=== PATIENT | female | born 1945 | race Caucasian/White ===

== ENCOUNTER 2024-03-13 10:30 | Outpatient (AMB) | payer OTHER, SELFPAY ==
[2022-12-31 13:27] VITALS: BP 96/48; BP 96/58; BP 98/48; BMI 27.9
--- NOTE | 2024-03-13 10:54 | MHC.OFFVIS ---
Vital Signs 03/13/24 10:56 Height 5 ft 4 in Weight 170 lb BMI 29.2 BP 126/60 Blood Pressure Location Rt brachial Position Sitting Respiration 17 Pulse 75 Pulse Source Pulse Oximeter Pulse Oximetry (%) 98 Oxygen Delivery Method Room Air Intake Visit Reasons: ENP-Bradykinesia Intake Note: Pt presents for new pt consultation for bradykinesia. Automobile Brakes Bonder Required: No Allergies Penicillins Allergy (Mild, Verified 03/13/24 10:56) Rash Medication List - Last Reconciled 03/13/24 by Magy Paula MD aspirin 81 mg PO DAILY atorvastatin 40 mg PO DAILY bisacodyl 10 mg SC DAILY PRN cholecalciferol (vitamin D3) 25 mcg PO DAILY ibuprofen 200 mg PO Q6H PRN ipratropium bromide 2 sprays intranasal TID lisinopril 5 mg PO DAILY loratadine (Claritin) 10 mg PO DAILY psyllium husk (Metamucil) 1 tbsp PO DAILY HPI Comments Details: 78y/o Right handed female comes for evaluation of slowness. She noticed some tremors and slowness in her right hand for past 18 mths and feels its worsening. she had aortic valve replacement - 18 mths ago , she was fatigued and slow before that - it was assumed to be due to Aortic stenosis. Her slowness did not improve after her heart valve replacement.Her speech is soft and has some difficulty with word finding. she has nighttime drooling , occasional swallowing issues.her hand writing is smaller and slower. she has difficulty with cutting meat,dressing, having a shower and turning in bed. Her gait is slow - she thinks it might be related to sciatica. she shuffles , has some balance issues and is stooped. she has constipation for many years.she denies hallucination.she denies diplopia but reports occasion dizziness and vertigo. No head injury. Memory is worse.she reports vivid dreams and acting out in sleep for atleast 10 years. Mood is stable. [facility] Medical History (Updated 03/13/24 @ 11:53 by Magy Paula MD) Gait disorder Cervicalgia Parkinson's disease without dyskinesia Osteopenia Essential hypertension Breast CA Vitamin D deficiency Aortic valve stenosis Surgical History H/O aortic valve replacement H/O heart surgery History of appendectomy Social History Household Members: Spouse Housing: Assisted Living Facility Alcohol intake: current Comment: 1-2 glass wine Patient Tobacco Use Status: Never used Tobacco Physical Exam Vital Signs: Last Vital Signs Pulse 75 03/13/24 10:56 Resp 17 03/13/24 10:56 BP 126/60 03/13/24 10:56 Pulse Ox 98 03/13/24 10:56 Oxygen Delivery Method Room Air 03/13/24 10:56 BMI result Body Mass Index 29.2 Const General: cooperative, comfortable and no acute distress Nutritional Appearance: average body habitus Orientation/consciousness: oriented to person, oriented to place, oriented to time and patient oriented x3 Eyes Pupils: Equal, round and reactive pupils present Neck Neck: Yes no meningeal signs Neuro Other: Moderate decreased blink facial expression Right hand tremors - 4-6 hz in frequency intermittent Moderate bradykinesia FFM and foot taps decreased R>L Cog wheel rigidity - 2 + no UE Gait stooped , slow, narrow based , short steps , decreased arm swings R>L Moderate hypophonia General: oriented to person, oriented to place, oriented to time, patient oriented x3 and no meningeal signs Cranial nerves: Yes Facial sensation intact/muscles of mastication intact, Yes Equal, round and reactive pupils present, Yes Bilaterally intact EOM present, Yes Nystagmus not present, Yes Normal facial strength present, Yes Midline tongue present and Yes Symmetric palate elevation present Cognition (Neuro): normal cognition Motor exam (neuro): 5/5 motor strength present throughout Deep tendon reflexes (DTR's): Right triceps reflex intensity grade: 3+, Left triceps reflex intensity grade: 3+, Rt Biceps (C5, C6): 3+, Left biceps reflex intensity grade: 3+, Right brachioradialis reflex intensity grade: 3+, Left brachioradialis reflex intensity grade: 3+, Right patellar reflex intensity grade: 3+ and Left patellar reflex intensity grade: 3+ Coordination: [id number] test normal Assessment & Plan Assessment & Plan (1) Parkinson's disease without dyskinesia: Code(s): G20.A1 - Parkinson's disease without dyskinesia, without mention of fluctuations Category: Medical (2) Cervicalgia: Code(s): M54.2 - Cervicalgia Category: Medical Plan Discussed about diagnosis and management options in detail I will evaluate her with MRI brain MRI C spine to r/o spinal stenosis Trial patient on carbidopa/levodopa 25/100 1/2 tab tid - side effects explained PT Orders: Orders MR head/brain wo con 03/13/24 G20.A1 - Parkinson's disease without dyskinesia, without mention of fluctuations PT Evaluation and Treatment 03/13/24 G20.A1 - Parkinson's disease without dyskinesia, without mention of fluctuations MR cervical spine wo con 03/13/24 G20.A1 - Parkinson's disease without dyskinesia, without mention of fluctuations, M54.2 - Cervicalgia, R26.9 - Unspecified abnormalities of gait and mobility Referrals Speech and Hearing Referral G20.A1 - Parkinson's disease without dyskinesia, without mention of fluctuations Medications: New carbidopa-levodopa 25-100 mg 1/2 tab tid orally 3 times a day; 90 tabs 3RF Coding Level of Care Code New Pt Level 4 (33270) Complex EM visit Add On G2211 Diagnoses Parkinson's disease without dyskinesia G20.A1 Cervicalgia M54.2
[2024-03-13 10:56] VITALS: BP 126/60; PULSE 75; RESP 17; O2SAT 98; BMI 29.2
== END 2024-03-13 12:01 | disposition home or self-care (01) ==
PROVIDERS: PCP Family Medicine; Visit Provider Psychiatry & Neurology Neurology
DX: G20.A1 Parkinson's disease without dyskinesia, without mention of fluctuations (principal); M54.2 Cervicalgia
CPT/HCPCS: 99204; G2211

== ENCOUNTER → 2024-03-13 10:30 | Outpatient (BNVA) | payer OTHER, SELFPAY ==
[2022-12-31 13:27] VITALS: BP 96/48; BP 96/58; BP 98/48; BMI 27.9
== END ==
PROVIDERS: PCP Family Medicine; Visit Provider Psychiatry & Neurology Neurology

== ENCOUNTER 2024-05-13 09:45 | Outpatient (REF) | payer OTHER, SELFPAY ==
[2022-12-31 13:27] VITALS: BP 96/48; BP 96/58; BP 98/48; BMI 27.9
== END 2024-05-13 09:46 | disposition home or self-care (01) ==
LOC: HO.MRI 09:45
PROVIDERS: PCP Family Medicine; Visit Provider Psychiatry & Neurology Neurology
DX: G20.A1 Parkinson's disease without dyskinesia, without mention of fluctuations (principal); M54.2 Cervicalgia; R26.9 Unspecified abnormalities of gait and mobility
CPT/HCPCS: 70551; 72141

== ENCOUNTER 2024-05-26 12:00 | Outpatient (RCR) | payer OTHER, SELFPAY ==
[2022-12-31 13:27] VITALS: BP 96/48; BP 96/58; BP 98/48; BMI 27.9
--- NOTE | 2024-05-29 15:33 | MHC.SP.ADU ---
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 She was recently diagnosed and medicated for Parkinson's Disease. She complains of difficulty raising her voice and occasional word finding difficulties. She lives independently with her who is in good health. She has a Daughter and 2 Grandchildren who live nearby. Medical History: Other: See below Gait disorder Cervicalgia Parkinson's disease without dyskinesia Osteopenia Essential hypertension Breast CA Vitamin D deficiency Aortic valve stenosis Surgical History H/O aortic valve replacement H/O heart surgery History of appendectomy Medication List: Recent Hospitalizations: No Respiratory Needs: Room Air Patient Orientation: Alert & Oriented x 4 Social History: Employment Status: Retired Highest level of education obtained: Completed Bachelor's Current Living Situation: Independent at home with . Comment: Past Speech Language Therapy: None. Other Therapies Seen in Current Calendar Year: Unknown Swallowing History: Dysphagia Specific: Oralpharyngeal Dysphagia Comments: Pt report occasional difficulty swallowing, which she characterizes as food feeling stuck in her throat. She has not had a Modified Barium Swallow Study. Pre-eval Risk for Aspiration: Neurological Condition Weak Cough Weak Voice Pre-evaluation Dietary Consistencies: Regular Pre-eval Liquid Intake: Thin Pre-eval Medication Intake: Whole with Liquid Reported Speech, Language, Cognition difficulties: Voice Quality of Life: Pt reports people say she is difficult to understand. Patient Stated Goal of Speech-Language Therapy: Improve vocal quality and intelligibility. Assessment Speech Production: Slow Clinical Impression: Intact Informal Voice Assessment: Voice Loudness: Moderately Soft/Quiet Voice Nasal Resonance: Normal Voice Oral Resonance: Normal Voice Phonatory-based Quality: Quivering Weak Voice Pitch: Limited Variation Voice Other Observations: Clinical Impression: Impaired Clinicial Observations: Pt completed the Voice-Related Quality of Life (V-RQoL) questionnaire. She scored a total of 17 points which falls in the Very Good range. She endorses that I have trouble speaking loudly or being heard in noisy situations as A Lot (4). She also reports, I have to repeat myself to be understood), as A Moderate Amount (3). Her vocal quality is subjectively judged to be povs-gb-xsmnbehlns quiet and breathy. Given her reports of word finding difficulties she participated in the Expressive One-Word Picture Vocabulary Test achieving a Raw Score of 180. This yielded a Standard Score of >145, placing her in the 99th Percentile for her age. This in the Superior Range. Her reported difficulty with word find would appear to have less to do with Word Retrieval, than perhaps Processing Speed. 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 She demonstrated an average vowel prolongation time of 20 seconds (WFL). She prolonged /s/ and average of 10 seconds, and /z/ for 19 seconds with an /s/:/z/ ratio of 1.9, in the abnormal range. Acoustic measurement of voice was taken with the Multi-Dimentional Voice Protocol (MDVP) using [employer]. MDVPreport: Voice Report Parameter Name Value Unit Norm(f) STD(f) Threshold Average Fundamental Frequency Fo 167.653 Hz 243.973 27.457 Highest Fundamental Frequency Fhi 190.112 Hz 252.724 26.570 Lowest Fundamental Frequency Beau 146.985 Hz 234.861 28.968 Relative Average Perturbation RAP 2.543 % 0.378 0.214 0.680 Shimmer Percent Floyd 9.038 % 1.997 0.791 3.810 Noise to Harmonic Ratio NHR 0.185 0.112 0.009 0.190 Voice Turbulence Index VTI 0.059 0.046 0.012 0.061 Relative Average Perturbation (RAP) is a measure of the prvsh-go-dodrr pitch period variation. This is reflective of the frequency perturbation. Her RAP measurement is outside the expected range. Shimmer (Floyd) is a measure of perturbation occurring in vowel production using the same sustained ah vowel. Shimmer reflects jmoeb-ri-jbmdu amplitude variations in the voice waveform. Her Floyd score is outside the expected range. [ End ] Tests of Speech & Lang Adults: WAB-R Clinical Impression: Did Not Test Tests of Cognition: Clinical Impression: Did Not Test Augmentative and Alternative Communication: Did Not Test Impressions and Recommendations Summary: Impact on Daily Function/Activity Limitations: Daily Activities: Mild Interpersonal Interactions: Mild Education: None Employment: None Community: Mild Prognosis for Improvement: Good Recommendation for Speech Therapy: Outpatient Speech Therapy Frequency/Duration: 1 x week x 10 weeks Date Range for Service Requested: 05/26/24 - 08/26/23 Time to Reassess: PRN Prison Goals: LTG1: Maria Alejandra will self-report improvement to her voice via the V-RQOL. LTG2: Maria Alejandra will demonstrate improvement to RAP and Floyd via repeat acoustic analysis. Short Term Goals: Goal # : STG1: Maria Alejandra will increase her vocal amplitude to 85dB during conversation. Goal Status: New Goal Goal# : STG2: Maria Alejandra will demonstrate increase pitch range in 80% of opportunities with visual feedback. Goal Status: New Goal Goal # : STG3: Maria Alejandra will identify environmental modifications she can make to improve her intelligibility with >80% accuracy. Goal Status: New Goal Goal # : STG4: Maria Alejandra will participate in weekly HEP with >80% accuracy. Goal Status: New Goal Recommended Referrals to be Discussed with Primary Care Provider: ENT Consult Other: See Comment Consider ENT consult if Pt wants to enroll in LSVT-LOUD therapy. Consider outpatient MBSS to assess baseline swallowing ability. Patient Education: Completed: No Patient/Caregiver Education: Patient expressed understanding of evaluation Patient agrees with goals and treatment plan Patient understands results but refuses treatment Patient requires further education on strategies Youth Ministry Director Clinican/Clinical Fellow: No Supervisory Statement: N/A Speech Language Pathologist: Rafael Silva M.A., CCC-HANDMADE TILE ARTIST
== END 2024-05-30 10:07 | disposition still patient (30) ==
LOC: HO.SH 12:00
PROVIDERS: PCP Family Medicine; Visit Provider Psychiatry & Neurology Neurology
DX: G20.A1 Parkinson's disease without dyskinesia, without mention of fluctuations (principal)

== ENCOUNTER 2024-07-10 09:49 | Outpatient (AMB) | payer OTHER, SELFPAY ==
[2022-12-31 13:27] VITALS: BP 96/48; BP 96/58; BP 98/48; BMI 27.9
[2024-07-10 10:03] VITALS: BP 130/88; PULSE 72; O2SAT 98; BMI 29.7
--- NOTE | 2024-07-10 10:03 | A.OFFVIS_ITS ---
Vital Signs 07/10/24 10:03 Height 5 ft 4 in Weight 173 lb 4 oz BMI 29.7 BP 130/88 Blood Pressure Location Lt brachial Position Sitting Pulse 72 Pulse Source Pulse Oximeter Pulse Oximetry (%) 98 Oxygen Delivery Method Room Air Intake Visit Reasons: Follow up Bradykinesia Allergies Penicillins Allergy (Mild, Verified 07/10/24 10:03) Rash Medication List - Last Reconciled 07/10/24 by Magy Paula MD aspirin 81 mg PO DAILY atorvastatin 40 mg PO DAILY bisacodyl 10 mg UT DAILY PRN carbidopa-levodopa 25-100 mg 1/2 tab tid orally 3 times a day; 90 days cholecalciferol (vitamin D3) 25 mcg PO DAILY ibuprofen 200 mg PO Q6H PRN ipratropium bromide 2 sprays intranasal TID lisinopril 5 mg PO DAILY loratadine (Claritin) 10 mg PO DAILY magnesium citrate 150 mg PO .prn psyllium husk (Metamucil) 1 tbsp PO DAILY HPI Comments Details: 78y/o Right handed female comes for follow up of parkinsons disease. she is feeling better with sinemet 25/100 1/2 tab tid . her gait is better and tremors , slowness is better.she takes 1/2 tab 7am-12 noon and 5 pm.she is doing PT exercises and is doing well.Urinary dribbling is worse - dribbling. she feels her eyes are dry at night. if she stands for too long - feels tight muscles in her back.she also has trouble sleeping. History from initial visit- She noticed some tremors and slowness in her right hand for past 18 mths and feels its worsening. she had aortic valve replacement - 18 mths ago , she was fatigued and slow before that - it was assumed to be due to Aortic stenosis. Her slowness did not improve after her heart valve replacement.Her speech is soft and has some difficulty with word finding. she has nighttime drooling , occasional swallowing issues.her hand writing is smaller and slower. she has difficulty with cutting meat,dressing, having a shower and turning in bed. Her gait is slow - she thinks it might be related to sciatica. she shuffles , has some balance issues and is stooped. she has constipation for many years.she denies hallucination.she denies diplopia but reports occasion dizziness and vertigo. No head injury. Memory is worse.she reports vivid dreams and acting out in sleep for atleast 10 years. Mood is stable. [facility] Medical History Gait disorder Cervicalgia Parkinson's disease without dyskinesia Osteopenia Essential hypertension Breast CA Vitamin D deficiency Aortic valve stenosis Surgical History H/O aortic valve replacement H/O heart surgery History of appendectomy Social History Household Members: Spouse Housing: Assisted Living Facility Alcohol intake: current Comment: 1-2 glass wine Patient Tobacco Use Status: Never used Tobacco Physical Exam Vital Signs: Last Vital Signs Pulse 72 07/10/24 10:03 BP 130/88 07/10/24 10:03 Pulse Ox 98 07/10/24 10:03 Oxygen Delivery Method Room Air 07/10/24 10:03 BMI result Body Mass Index 29.7 Const General: cooperative, comfortable and no acute distress Nutritional Appearance: average body habitus Orientation/consciousness: oriented to person, oriented to place, oriented to time and patient oriented x3 Neck Neck: Yes no meningeal signs Neuro Other: Moderate decreased blink facial expression No tremors today Moderate bradykinesia FFM and foot taps decreased R>L Cog wheel rigidity - 2 + no UE Gait stooped , slow, narrow based , short steps , decreased arm swings R>L Moderate hypophonia General: oriented to person, oriented to place, oriented to time, patient oriented x3 and no meningeal signs Cognition (Neuro): normal cognition Motor exam (neuro): 5/5 motor strength present throughout Coordination: lzibqp-wt-tjzv test normal Assessment & Plan Assessment & Plan (1) Parkinson's disease without dyskinesia: Code(s): G20.A1 - Parkinson's disease without dyskinesia, without mention of fluctuations Category: Medical Qualifiers: Fluctuating manifestations: without fluctuating manifestations Qualified Code(s): G20.A1 - Parkinson's disease without dyskinesia, without mention of fluctuations (2) Cervicalgia: Code(s): M54.2 - Cervicalgia Category: Medical Plan Discussed about diagnosis and management options in detail Trial melatonin 1-3 mg qhs MRI C spine and brain reviewed Trial increasing carbidopa/levodopa 25/100 1 tab tab tid - side effects explained continue exercises encouraged her to use a cane for ambulating Medications: Changed From carbidopa-levodopa 25-100 mg 1/2 tab tid orally 3 times a day; 90 tabs 3RF To carbidopa-levodopa 25-100 mg 1/2 tab tid orally 3 times a day; 90 days 270 tabs 3RF Coding Level of Care Code Est Pt Level 4 (56761) Complex EM visit Add On G2211 Diagnoses Parkinson's disease without dyskinesia or fluctuating manifestations G20.A1 Fluctuating manifestations: without fluctuating manifestations Cervicalgia M54.2
== END 2024-07-10 10:40 | disposition home or self-care (01) ==
PROVIDERS: PCP Family Medicine; Visit Provider Psychiatry & Neurology Neurology
DX: G20.A1 Parkinson's disease without dyskinesia, without mention of fluctuations (principal); M54.2 Cervicalgia
CPT/HCPCS: 99214; G2211

== ENCOUNTER 2024-07-17 09:30 | Outpatient (RCR) | payer MEDICARE, SELFPAY ==
[2022-12-31 13:27] VITALS: BP 96/48; BP 96/58; BP 98/48; BMI 27.9
--- NOTE | 2024-07-24 10:16 | MHC.SL.SOA ---
Referring Provider: Magy Paula MD Reason for Referral: G20.A1 - Parkinson's disease without dyskinesia, without mention of fluctua Date of Plan of Treatment:05/26/24 Onset of Symptoms/Illness:03/14/24 Date Treatment Started:05/26/24 Medical Diagnosis:Parkinson's disease without dyskinesia, without mention of fluctuations (G20.A1) Primary Speech Language Diagnosis:R49.0 Dysphonia Reason for Visit:Non-billable Event Subjective:Maria Alejandra was seen for speech therapy addressing voice concerns in the setting of Parkinson's Disease. She had attended 5 sessions between 06/05/24 and 07/17/24. Objective: Data collected 07/17/24: - Reports every other day compliance to HEP. She has been watching videos on the Parkinson's Voice [facility] website to supplement. - Demonstrated average of 70 dB with reading passage and prolonged phonation. - Achieved 79 dB average (max=86 dB) with cues to be louder. - Introduced to tell 4 and 5-step stories with instructions to be louder. Achieved an average of 70 dB over the narrative. - Reports that she is more conscious about her voice. Scored 21 today on VRQoL (increased from 17 at evaluation). 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 MOLD SHAKER recommending a short course of Voice Therapy in preparation for her participation in a more intensive voice program such as [facility] or [facility] She is reporting a preference for [facility] at this time. Notes: Patient is discharged from speech therapy services at this time in light of recent staffing changes. MOLD SHAKER discussed course of treatment with patient over the phone today. Patient expressed she feels comfortable with her voice and is satisfied with the progress she has made thus far in treatment. Patient is recommended more intensive protocol for further treatment, such as [facility] or [facility] She will be on the waitlist for next available provider. Patient is aware she would be starting with a new evaluation and is in agreement with this treatment plan. LTG1: Maria Alejandra will self-report improvement to her voice via the V-RQOL. LTG2: Maria Alejandra will demonstrate improvement to RAP and Floyd via repeat acoustic analysis. Plan: Goal # : STG1: Maria Alejandra will increase her vocal amplitude to 85dB during conversation. Status of Goal: Discharge Goal Goal # : STG2: Maria Alejandra will demonstrate increase pitch range in 80% of opportunities with visual feedback. Status of Goal: Discharge Goal Goal # : STG3: Maria Alejandra will identify environmental modifications she can make to improve her intelligibility with >80% accuracy. Status of Goal: Discharge Goal Goal # : STG4: Maria Alejandra will participate in weekly HEP with >80% accuracy. Status of Goal: Discharge Goal Seen by: Graduate/Clinical Fellow: No Supervisory Statement: f_Reg Query Last Value , [facility].AU[facility] Speech Language Pathologist: Barbara Lacy M.A., CCC-MOLD SHAKER
== END 2024-07-24 14:53 | disposition home or self-care (01) ==
LOC: HO.SH 09:30
PROVIDERS: PCP Family Medicine; Visit Provider Psychiatry & Neurology Neurology
DX: G20.A1 Parkinson's disease without dyskinesia, without mention of fluctuations (principal)
CPT/HCPCS: 92507

== ENCOUNTER 2025-01-08 11:26 | Outpatient (AMB) | payer OTHER, SELFPAY ==
[2022-12-31 13:27] VITALS: BP 96/48; BP 96/58; BP 98/48; BMI 27.9
--- NOTE | 2025-01-08 11:28 | MHC.OFFVIS ---
Vital Signs 01/08/25 11:29 Height 5 ft 4 in Weight 173 lb BMI 29.7 BP 130/90 H Blood Pressure Location Rt brachial Position Sitting Pulse 66 Pulse Source Pulse Oximeter Pulse Oximetry (%) 98 Oxygen Delivery Method Room Air Intake Visit Reasons: 6 mo follow up Intake Note: Patient following up for Parkinson's disease without dyskinesia Allergies Penicillins Allergy (Mild, Verified 01/08/25 11:30) Rash Medication List - Last Reconciled 01/08/25 by Magy Paula MD aspirin 81 mg PO DAILY atorvastatin 40 mg PO DAILY bisacodyl 10 mg [place] DAILY PRN carbidopa-levodopa 25-100 mg 1 tab PO TID 90 days cholecalciferol (vitamin D3) 25 mcg PO DAILY ibuprofen 200 mg PO Q6H PRN ipratropium bromide 2 sprays intranasal TID lisinopril 5 mg PO DAILY loratadine (Claritin) 10 mg PO DAILY magnesium citrate 150 mg PO .prn psyllium husk (Metamucil) 1 tbsp PO DAILY HPI Comments Details: 79y/o Right handed female comes for follow up of parkinsons disease. she is feeling good with sinemet 25/100 1tab tid .she feels lightheaded when she stands up. her gait is better and tremors , slowness is better.she takes 1 7am-12 noon and 5 pm.she is doing her exercises regularly. Urinary dribbling is worse - dribbling. if she stands for too long - feels tight muscles in her back.she also has trouble sleeping- it is hard to move around in bed - hot pad helps, meditation music helps.she tried melatonin. History from initial visit- She noticed some tremors and slowness in her right hand for past 18 mths and feels its worsening. she had aortic valve replacement - 18 mths ago , she was fatigued and slow before that - it was assumed to be due to Aortic stenosis. Her slowness did not improve after her heart valve replacement.Her speech is soft and has some difficulty with word finding. she has nighttime drooling , occasional swallowing issues.her hand writing is smaller and slower. she has difficulty with cutting meat,dressing, having a shower and turning in bed. Her gait is slow - she thinks it might be related to sciatica. she shuffles , has some balance issues and is stooped. she has constipation for many years.she denies hallucination.she denies diplopia but reports occasion dizziness and vertigo. No head injury. Memory is worse.she reports vivid dreams and acting out in sleep for atleast 10 years. Mood is stable. [facility] Medical History (Updated 01/08/25 @ 11:45 by Magy Paula MD) REM behavioral disorder Gait disorder Cervicalgia Parkinson's disease without dyskinesia Osteopenia Essential hypertension Breast CA Vitamin D deficiency Aortic valve stenosis Surgical History H/O aortic valve replacement H/O heart surgery History of appendectomy Social History Household Members: Spouse Housing: Assisted Living Facility Alcohol intake: current Comment: 1-2 glass wine Patient Tobacco Use Status: Never used Tobacco Physical Exam Vital Signs: Last Vital Signs Pulse 66 01/08/25 11:29 BP 130/90 H 01/08/25 11:29 Pulse Ox 98 01/08/25 11:29 Oxygen Delivery Method Room Air 01/08/25 11:29 BMI result Body Mass Index 29.7 Const General: cooperative, comfortable and no acute distress Nutritional Appearance: average body habitus Orientation/consciousness: oriented to person, oriented to place, oriented to time and patient oriented x3 Neck Neck: Yes no meningeal signs Neuro Other: Mild decreased blink facial expression No tremors today Mild bradykinesia FFM and foot taps decreased R>L Cog wheel rigidity - 1 + no UE Gait stooped , slow, narrow based , short steps , decreased arm swings R>L. good turning Mild hypophonia General: oriented to person, oriented to place, oriented to time, patient oriented x3 and no meningeal signs Cognition (Neuro): normal cognition Motor exam (neuro): 5/5 motor strength present throughout Coordination: [id number] test normal Assessment & Plan Assessment & Plan (1) Parkinson's disease without dyskinesia: Code(s): G20.A1 - Parkinson's disease without dyskinesia, without mention of fluctuations Category: Medical Qualifiers: Fluctuating manifestations: without fluctuating manifestations Qualified Code(s): G20.A1 - Parkinson's disease without dyskinesia, without mention of fluctuations (2) Cervicalgia: Code(s): M54.2 - Cervicalgia Category: Medical (3) REM behavioral disorder: Code(s): G47.52 - REM sleep behavior disorder Category: Medical Plan Trial melatonin 3 mg qhs MRI C spine and brain reviewed carbidopa/levodopa 1 tab tab tid - side effects explained- increase fluids continue exercises Coding Level of Care Code Est Pt Level 4 (23822) Complex EM visit Add On G2211 Diagnoses Parkinson's disease without dyskinesia or fluctuating manifestations G20.A1 Fluctuating manifestations: without fluctuating manifestations Cervicalgia M54.2 REM behavioral disorder G47.52
[2025-01-08 11:29] VITALS: BP 130/90; PULSE 66; O2SAT 98; BMI 29.7
--- OUTSIDE RECORDS SUMMARY | 2025-01-08 12:22 | XMS_ITS | Data Portability ---
Author Organization [facility], [facility] Address [address] [place] [address] Care Team Providers Care Staff Auditor Name Role Phone THEODORA BARKER OTHER AVA ELISE Primary Care Provider REVA LANE Metrology Technician [facility] OTHER Assessment Encounter Date Assessment Date Assessment LastModified by Organization Details LastModified Time 04/21/2024 04/21/2024 We completed your Medicare Wellness exam today. This was an opportunity to assess your overall well being including your ability to care for yourself, your mobility, memory, mental health, as well as your safety. With advancing age, it is important to assign someone in your life as your Health Care Proxy (HCP). This person should know what is important to you and what your wishes are for medical procedures if you cannot communicate your wishes yourself (severe illness, unconsciousness) . We discussed having a completed Health Care Proxy form today. In addition, today we started a conversation about your End of Life wishes. These conversations will continue over the years. Please consider reading the book, Being Mortal by Kyle Steevnson to help frame future conversations. We discussed the purpose of a MOLST form (Medical Orders for Life Sustaining Treatment) and completed this form if appropriate per your wishes. Vision and Hearing are senses that are critically important as we age. When impaired, they can contribute to memory loss, falls, and make it harder to drive, talk to family and friends, and engage in the world. Please get your vision checked yearly and your hearing checked when you start to notice hearing loss. We discussed approaches to lowering your risk of heart disease and stroke . Your blood pressure is at goal. Your cholesterol is at goal. We discussed cancer screening you may need as well as vaccines to prevent infections. Breast Cancer : Breast Cancer Screening (mammography). Next mammogram due: 2024. Influenza Vaccine : Flu shot yearly. Tetanus Vaccine : Every 10 years. Due: 2024. The following vaccines are available from your pharmacy: Pneumonia Vaccine : PCV20: once after age 65. Shingles Vaccine : 2 shots after age 50. Covid Vaccine : Make sure you have received the most up to date covid vaccine. Your personal health goal for the year is: boris Not available 04/21/2024 11:30:32 01/02/2025 01/02/2025 Ingrown toenail medial border left hallux jerskine Not available 01/02/2025 15:25:54 Plan of Treatment Reminders Order Date Submit Date Provider Last Modified By Organization Details Last Modified Time Details Appointments Medical Managemen t 15 2024 02:15P M Ava Elise MD Not available Not available Not available Lab None recorded. Referral podiatris t referral - Recurrent , currently not infected. rec: partial nail ablation w/ ? phenol 2024 025 rocio Pickard DPM, [address] [facility] [address], [place], [address], 10/24/2024 11:53:[address] referral - Sumit kinesia, hoarsenes s( neg ENT eval), micrograp hia and shaking feeling when tired. occ tremor in hand. 2023 024 pprrossana Menard MD, [address] [facility], [facility], [place], [address], 07/20/2023 10:22:10 Procedures None recorded. Surgeries None recorded. Imaging XR, hip + pelvis, unilatera l, 2 or 3 view 2023 024 [facility] [address], [place], [address], 07/13/2023 16:34:39 Medication Orders lisinopri l 5 mg tablet 2023 024 [facility], [address], [place], [address], 04/21/2024 11:22:16 lisinopri l 5 mg tablet 2023 024 [facility], [address], [place], [address], 10/15/2023 12:05:18 ipratropi um bromide 42 mcg (0.06 %) nasal spray 2023 024 [facility], [address], [place], [address], 07/13/2023 15:09:36 atorvasta tin 40 mg tablet 2023 024 [facility], [address], [place], [address], 07/13/2023 15:09:36 Patient TargetsNo targets recorded. Patient Instructions Encounter Date Encounter Id Patient Instructions Last Modified By Organization Details Last Modified Time 01/02/2025 [id number] Patient to consider permanent partial matrixectomy medial border left hallux if symptoms persist/recur. jerskine Not available 01/02/2025 15:26:14 Reason for Referral Neurologist Referral for Bra dykinesia Sumit kinesia, hoarseness( neg ENT eval), micrographia and shaking feeling when tired. occ tremor in hand. Referring Physician: Ava Elise, Family Medicine, Encounter Date: 07/13/2023 Pediatric Physician Assistant Referral for Ingr owing great toenail Recurrent, currently not infected. rec: partial nail ablation w/ ? phenol Referring Physician: Ava Elise Family Medicine, Encounter Date: 10/20/2024 Results Created Date Observation Date Name Description Value Unit Range Abnormal Flag Note LastModifiedBy Organization Detail LastModifiedTime 07/13/19 24 07/14/2023 COMP. METAB OLIC PANEL glucose 99 mg/dL 70-100 Not Available [address], [address], 07/14/2023 11:02:25 07/13/19 24 07/14/2023 COMP. METAB OLIC PANEL BUN 23 mg/dL 7-18 high Not Available [address], [address], 07/14/2023 11:02:25 07/13/19 24 07/14/2023 COMP. METAB OLIC PANEL creatinine 0.9 mg/dL 0.8-1. 3 Not Available [address], [address], 07/14/2023 11:02:25 07/13/19 24 07/14/2023 COMP. METAB OLIC PANEL B/C 25.6 ratio Not Available [address], [address], 07/14/2023 11:02:25 07/13/19 24 07/14/2023 COMP. METAB OLIC PANEL GFR >=60ML /MIN mL/mi n normal >=60m L/min - Beronica l or midly reduc ed <60mL /min- Decre ased kidne y funct ion <15mL /min - Kidne y failu re [facility] [employer] [facility] [employer] calcu lates estim ated Glome rular Filtr ation Rate (eGFR ) using the Chron ic Kidne y Disea se Epide miolo gy Colla borat ion (CKD- EPI) Equat ion (Gennaro r et. al 2020) as recom jerome d by the Natio nal Kidne y Found ation . eGFR is based on age, serum creat inine , and sex. CKD-E PI does not calcu late eGFR by race, does not apply to child eduin (age <18 years ), and shoul d not be used in pregn kasia. Not Available [address], [address], 07/14/2023 11:02:25 07/13/19 24 07/14/2023 COMP. METAB OLIC PANEL sodium 140 mmol/ L 136-14 5 Not Available [address] [place], [address], 07/14/2023 11:02:25 07/13/19 24 07/14/2023 COMP. METAB OLIC PANEL potassium 4.1 mmol/ L 3.5-5. 1 Not Available [address], [address], 07/14/2023 11:02:25 07/13/19 24 07/14/2023 COMP. METAB OLIC PANEL chloride 102 mmol/ L 96-107 Not Available [address], [address], 07/14/2023 11:02:25 07/13/1907/14/2023 COMP. METAB OLIC PANEL anion gap 10.5 5.0-15 .0 Not Available [address], [address], 07/14/2023 11:02:25 07/13/19 24 07/14/2023 COMP. METAB OLIC PANEL CO2 28 mmol/ L 21-32 Not Available [address], [address], 07/14/2023 11:02:25 07/13/19 24 07/14/2023 COMP. METAB OLIC PANEL calcium 9.0 mg/dL 8.5-10 .3 Not Available [address], [address], 07/14/2023 11:02:25 07/13/19 24 07/14/2023 COMP. METAB OLIC PANEL total protein 7.1 g/dL 6.4-8. 2 Not Available [address], [address], 07/14/2023 11:02:25 07/13/19 24 07/14/2023 COMP. METAB OLIC PANEL albumin 3.9 g/dL 3.4-5. 0 Not Available [address], [address], 07/14/2023 11:02:25 07/13/19 24 07/14/2023 COMP. METAB OLIC PANEL globulin 3.2 g/dL Not Available [address], [address], 07/14/2023 11:02:25 07/13/19 24 07/14/2023 COMP. METAB OLIC PANEL A/G 1.2 ratio 0.8-2. 0 Not Available [address], [address], 07/14/2023 11:02:25 07/13/19 24 07/14/2023 COMP. METAB OLIC PANEL total bilirubin 0.60 mg/dL 0.00-1 .00 Not Available [address], [address], 07/14/2023 11:02:25 07/13/19 24 07/14/2023 COMP. METAB OLIC PANEL AST 19 U/L 0-37 Not Available [address], [address], 07/14/2023 11:02:25 07/13/19 24 07/14/2023 COMP. METAB OLIC PANEL ALT 23 U/L 6-63 Not Available [address], [address], 07/14/2023 11:02:25 07/13/19 24 07/14/2023 COMP. METAB OLIC PANEL alk. phos. 89 U/L 50-136 Not Available [address], [address], 07/14/2023 11:02:25 04/19/20 24 04/19/2024 COMP. METAB OLIC PANEL glucose 89 mg/dL 70-100 Not Available [address], [address], 04/19/2024 12:15:16 04/19/20 24 04/19/2024 COMP. METAB OLIC PANEL BUN 16 mg/dL 7-18 Not Available [address], [address], 04/19/2024 12:15:16 04/19/20 24 04/19/2024 COMP. METAB OLIC PANEL creatinine 0.8 mg/dL 0.8-1. 3 Not Available [address], [address], 04/19/2024 12:15:16 04/19/20 24 04/19/2024 COMP. METAB OLIC PANEL B/C 20.0 ratio Not Available [address], [address], 04/19/2024 12:15:16 04/19/20 24 04/19/2024 COMP. METAB OLIC PANEL GFR >=60ML /MIN mL/mi n normal >=60m L/min - Beronica l or midly reduc ed <60mL /min- Decre ased kidne y funct ion <15mL /min - Kidne y failu re [employer] calcu lates estim ated Glome rular Filtr ation Rate (eGFR ) using the Chron ic Kidne y Disea se Epide miolo gy Colla borat ion (CKD- EPI) Equat ion (Gennaro gamez et. al 2020) as recom jerome d by the Natio nal Kidne y Found ation . eGFR is based on age, serum creat inine , and sex. CKD-E PI does not calcu late eGFR by race, does not apply to child eduin (age <18 years ), and shoul d not be used in pregn kasia. Not Available [address], [address], 04/19/2024 12:15:16 04/19/20 24 04/19/2024 COMP. METAB OLIC PANEL sodium 141 mmol/ L 136-14 5 Not Available [address], [address], 04/19/2024 12:15:16 04/19/20 24 04/19/2024 COMP. METAB OLIC PANEL potassium 4.7 mmol/ L 3.5-5. 1 Not Available [address], [address], 04/19/2024 12:15:16 04/19/20 24 04/19/2024 COMP. METAB OLIC PANEL chloride 104 mmol/ L 96-107 Not Available [address], [address], 04/19/2024 12:15:16 04/19/20 24 04/19/2024 COMP. METAB OLIC PANEL anion gap 5.5 5.0-15 .0 Not Available [address], [address], 04/19/2024 12:15:16 04/19/20 24 04/19/2024 COMP. METAB OLIC PANEL CO2 32 mmol/ L 21-32 Not Available [address], [address], 04/19/2024 12:15:16 04/19/20 24 04/19/2024 COMP. METAB OLIC PANEL calcium 9.5 mg/dL 8.5-10 .3 Not Available [address], [address], 04/19/2024 12:15:16 04/19/20 24 04/19/2024 COMP. METAB OLIC PANEL total protein 7.1 g/dL 6.4-8. 2 Not Available [address], [address], 04/19/2024 12:15:16 04/19/20 24 04/19/2024 COMP. METAB OLIC PANEL albumin 3.8 g/dL 3.4-5. 0 Not Available [address], [address], 04/19/2024 12:15:16 04/19/20 24 04/19/2024 COMP. METAB OLIC PANEL globulin 3.3 g/dL Not Available [address], [address], 04/19/2024 12:15:16 04/19/20 24 04/19/2024 COMP. METAB OLIC PANEL A/G 1.2 ratio 0.8-2. 0 Not Available [address], [address], 04/19/2024 12:15:16 04/19/20 24 04/19/2024 COMP. METAB OLIC PANEL total bilirubin 0.60 mg/dL 0.00-1 .00 Not Available [address], [address], 04/19/2024 12:15:16 04/19/20 24 04/19/2024 COMP. METAB OLIC PANEL AST 16 U/L 0-37 Not Available [address], [address], 04/19/2024 12:15:16 04/19/20 24 04/19/2024 COMP. METAB OLIC PANEL ALT 15 U/L 6-63 Not Available [address], [address], 04/19/2024 12:15:16 04/19/20 24 04/19/2024 COMP. METAB OLIC PANEL alk. phos. 85 U/L 50-136 Not Available [address], [address], 04/19/2024 12:15:16 04/19/20 24 04/19/2024 LIPID PANEL cholesterol 125 mg/dL <200 mg/dl Teodoro able 200-2 39 mg/dl Borde rline High >240 mg/dl High Not Available [address], [address], 04/19/2024 12:15:17 04/19/2004/19/2024 LIPID PANEL triglyceride s 65 mg/dL <150 mg/dL Beronica l 150-1 99 mg/dL Borde rline High 200-4 99 mg/dL High >500 mg/dL Very High Not Available [address] [place], [address], 04/19/2024 12:15:17 04/19/20 24 04/19/2024 LIPID PANEL direct HDL 76 mg/dL <40 mg/dl - Major Risk for CHD >60 mg/dl - Negat el Risk for CHD Not Available [address], [address], 04/19/2024 12:15:17 04/19/20 24 04/19/2024 LDL - CALCU LATED LDL - calculated 36 RISK CATEG ORY LDL GOAL _ CHD or CHD Risk Equiv alent s <100 mg/dl (10-y ear risk >20%) 2+ Risk Facto rs <130 mg/dl (10-y ear risk <= 20%) 0-1 Risk Facto r <160 mg/dl [facility] all peopl e with 0-1 risk facto r have a 10 year risk <10%, thus 10 year risk asses ment in peopl e with 0-1 risk facto r is not demar david. Not Available [address], [address], 04/19/2024 12:15:18 10/17/19 25 10/16/2024 CBC WBC 5.83 K/ L 3.98-1 0.04 Not Available [address], [address], 10/16/2024 10:38:49 10/17/19 25 10/16/2024 CBC RBC 4.39 M/ L 3.93-5 .22 Not Available [address], [address], 10/16/2024 10:38:49 10/17/19 25 10/16/2024 CBC HGB 13.4 g/dL 11.2-1 5.7 Not Available [address], [address], 10/16/2024 10:38:49 10/17/19 25 10/16/2024 CBC HCT 41.3 % 34.1-4 4.9 Not Available [address], [address], 10/16/2024 10:38:49 10/17/19 25 10/16/2024 CBC MCV 94.1 fL 79.4-9 4.8 Not Available [address], [address], 10/16/2024 10:38:49 10/17/19 25 10/16/2024 CBC MCH 30.5 pg 25.6-3 2.2 Not Available [address], [address], 10/16/2024 10:38:49 10/17/19 25 10/16/2024 CBC MCHC 32.4 g/dL 32.2-3 5.5 Not Available [address], [address], 10/16/2024 10:38:49 10/17/19 25 10/16/2024 CBC plt 279 K/ L 182-36 9 Not Available [address], [address], 10/16/2024 10:38:49 10/17/19 25 10/16/2024 CBC MPV 10.1 fL 9.4-12 .3 Not Available [address], [address], 10/16/2024 10:38:49 10/17/19 25 10/16/2024 CBC neut% 52.8 % 34.0-7 1.1 Not Available [address], [address], 10/16/2024 10:38:49 10/17/19 25 10/16/2024 CBC neut# 3.08 1.56-6 .13 Not Available [address], [address], 10/16/2024 10:38:49 10/17/19 25 10/16/2024 CBC lymph % 31.6 % 19.3-5 1.7 Not Available [address], [address], 10/16/2024 10:38:49 10/17/19 25 10/16/2024 CBC lymph # 1.84 K/ L 1.18-3 .74 Not Available [address], [address], 10/16/2024 10:38:49 10/17/19 25 10/16/2024 CBC mono% 9.8 % 4.7-12 .5 Not Available [address], [address], 10/16/2024 10:38:49 10/17/19 25 10/16/2024 CBC mono# 0.57 0.24-0 .56 high Not Available [address], [address], 10/16/2024 10:38:49 10/17/19 25 10/16/2024 CBC eo% 4.6 % 0.7-5. 8 Not Available [address], [address], 10/16/2024 10:38:49 10/17/19 25 10/16/2024 CBC eo# 0.27 0.04-0 .36 Not Available [address], [address], 10/16/2024 10:38:49 10/17/19 25 10/16/2024 CBC baso% 1.0 % 0.1-1. 2 Not Available [address], [address], 10/16/2024 10:38:49 10/17/19 25 10/16/2024 CBC baso# 0.06 0.00-0 .08 Not Available [address], [address], 10/16/2024 10:38:49 10/17/19 25 10/16/2024 CBC RDW-CV 13.1 % 11.7-1 4.4 Not Available [address], [address], 10/16/2024 10:38:49 10/17/19 25 10/16/2024 CBC Ig% 0.200 % 0.000- 1.500 Ig % >0.5 Indic ates possi ble Left Shift Not Available [address], [address], 10/16/2024 10:38:49 10/17/19 25 10/16/2024 CBC Ig# 0.010 0.000- 0.093 Not Available [address], [address], 10/16/2024 10:38:49 10/17/19 25 10/16/2024 CBC NRBC% 0.0 % 0.0-0. 2 Not Available [address], [address], 10/16/2024 10:38:49 10/17/19 25 10/16/2024 CBC NRBC# 0.000 0.000- 0.012 Not Available [address], [address], 10/16/2024 10:38:49 10/17/19 25 10/16/2024 BASIC METAB OLIC PANEL glucose 86 mg/dL 70-100 Not Available [address], [address], 10/16/2024 14:48:57 10/17/19 25 10/16/2024 BASIC METAB OLIC PANEL BUN 15 mg/dL 7-18 Not Available [address], [address], 10/16/2024 14:48:57 10/17/19 25 10/16/2024 BASIC METAB OLIC PANEL creatinine 0.8 mg/dL 0.8-1. 3 Not Available [address], [address], 10/16/2024 14:48:57 10/17/19 25 10/16/2024 BASIC METAB OLIC PANEL B/C 18.8 ratio Not Available [address], [address], 10/16/2024 14:48:57 10/17/19 25 10/16/2024 BASIC METAB OLIC PANEL GFR >=60ML /MIN mL/mi n normal >=60m L/min - Beronica l or midly reduc ed <60mL /min- Decre ased kidne y funct ion <15mL /min - Kidne y failu re [employer] calcu lates estim ated Glome rular Filtr ation Rate (eGFR ) using the Chron ic Kidne y Disea se Epide miolo gy Colla borat ion (CKD- EPI) Equat ion (Gennaro r et. al 2020) as recom jerome d by the Natio nal Kidne y Found ation . eGFR is based on age, serum creat inine , and sex. CKD-E PI does not calcu late eGFR by race, does not apply to child eduin (age <18 years ), and shoul d not be used in pregn kasia. Not Available [address], [address], 10/16/2024 14:48:57 10/17/19 25 10/16/2024 BASIC METAB OLIC PANEL sodium 143 mmol/ L 136-14 5 Not Available [address], [address], 10/16/2024 14:48:57 10/17/19 25 10/16/2024 BASIC METAB OLIC PANEL potassium 4.7 mmol/ L 3.5-5. 1 Not Available [address], [address], 10/16/2024 14:48:57 10/17/19 25 10/16/2024 BASIC METAB OLIC PANEL chloride 104 mmol/ L 96-107 Not Available [address], [address], 10/16/2024 14:48:57 10/17/19 25 10/16/2024 BASIC METAB OLIC PANEL anion gap 7.7 5.0-15 .0 Not Available [address], [address], 10/16/2024 14:48:57 10/17/19 25 10/16/2024 BASIC METAB OLIC PANEL CO2 31 mmol/ L 21-32 Not Available [address], [address], 10/16/2024 14:48:57 10/17/19 25 10/16/2024 BASIC METAB OLIC PANEL calcium 9.2 mg/dL 8.5-10 .3 Not Available [address], [address], 10/16/2024 14:48:57 07/13/19 24 07/13/2023 XR, hip + pelvi s, unila teral , 2 or 3 view CLINIC AL HISTOR Y: Left hip pain. TECHNI QUE: Two views of the left hip were obtain ed. COMPAR JU: None. FINDIN GS: No fractu re or sublux ation. There is preser vation of the hip joint space. IMPRES LA: No acute bone abnorm ality. Readin g Physic cayla: [facility]) [address], [place], [address], 07/14/2023 11:51:29 10/01/19 24 10/01/2023 trans -thor acic echoc ardio gram (TTE) (PROC ) No observ ation record ed. [facility] [address], [place], [address], 10/03/2023 15:00:18 06/18/20 24 05/13/2024 MRI, cervi britton spine , w/o contr ast No observ ation record ed. [facility] [address] [place], [address], 06/18/2024 20:35:02 06/18/20 24 05/13/2024 MRI, brain , w/o contr ast No observ ation record ed. [facility] [address] [place], [address], 06/18/2024 20:35:03 09/22/19 25 09/20/2024 trans -thor acic echoc ardio gram (TTE) (PROC ) No observ ation record ed. [facility] [place] [address] , [place], [address], 09/24/2024 14:56:42 Result Notes Documentation Provider Name and Address Organization Details Recorded Time Xr, Hip + Pelvis, Unilateral, 2 Or 3 View : CLINICAL HISTORY: Left hip pain. TECHNIQUE: Two views of the left hip were obtained. COMPARISON: None. FINDINGS: No fracture or subluxation. There is preservation of the hip joint space. IMPRESSION: No acute bone abnormality. Reading Physician: Ruthann Elise MD [address] [place] [address], [phone], [facility] 07/13/2023 21:35:26 Problems Name Problem SNOMED Code Status Onset Date Resolution Date Notes Provider Name and Address Organization Details Recorded Time Malignan t tumor of breast 200562084 Completed 05/06/2018 Removal Reason: no longer active Ava Elise MD [address] [place], [place] [address], [phone], [facility] 8 14:07:18 Osteopen ia 031999635 Active 07/2012 Haylee Ambrose M.D. [address] [place], [place] [address], [address], [facility] 5 11:42:14 Elevated blood-pr essure reading without diagnosi s of hyperten la 662599727 Active Haylee Ambrose M.D. [address] [place], [place] [address], 1, [facility] 5 11:49:34 Aortic root dilatati on 225380416 Active [id number] d by Dr. Mj Elise MD [address] [place], [place] [address], [place], 1, [facility] 4 11:02:51 Essentia l hyperten la 17648448 Active 2016 Ava Elise MD [address] [place], [place] [address], [place]IN, 1, [facility] 4 11:02:51 Diastoli c dysfunct ion 8607644 Active 2016 echo 01/2019 Nl EF, Nl Diastoly , Mod , mod MR, Mod TR Ava Elise MD [address] [place] [address] [place], [place], 1, [facility] 4 11:02:51 History of malignan t neoplasm of breast 086368608 Active 2017, finished 5-6 years of treatmne t Anastraz ole. 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 Onc: (Dr Tanya christine); needs new oncologi st; last visit w/ dr tanya christine in [facility] jul 2014; f/up yearly mammo every september Ava Elise MD [address] [place], [place] [address], 1, [facility] 4 11:02:51 Vitamin D deficien cy 49854254 Active 2019 Ava Elise MD [address] [place], [place] [address], [address], [facility] 0 14:13:36 Aortic valve stenosis 24989097 Active 2020 Repaired 08/03/22 Dr. Laxmi Elise MD [address] [place], [place] [address], [address], [facility] 3 21:48:27 [facility] 2274265 Active 2022 Ava Elise MD [address] [place], [place] [address], [address], [facility] 3 11:54:49 History of aortic valve replacem ent 06647547105 00 Active 2022 3 Ava Elise MD [address] [place], [place] [address], [address], [facility] 4 11:08:27 Problem Notes None recorded. Procedures Surgical History Date Name Laterality Status Provider Name and Address Organization Details Recorded Time 04/21/20 24 Medicare Wellness Visit completed Emily Lau [facility] 04/21/2024 10:47:47 04/21/20 24 Advanced Care Planning completed Emily Lau [facility] 04/21/2024 10:47:54 04/12/20 23 Medicare Wellness Visit completed Miri Chung [facility] 04/12/2023 09:18:16 04/12/20 23 Wart completed Ava Elise MD [address] [place] [address], [phone], [facility] 04/12/2023 12:09:03 08/19/19 23 Post hospital/SNF follow-up/Transiti onal Care completed Emily Lau [facility] 08/19/2022 15:44:27 08/03/19 23 replacement of aortic valve completed Ava Elise MD [address] [place] [address], [phone], [facility] 04/12/2023 11:59:10 03/17/20 22 Medicare Wellness Visit completed Emily Lau [facility] 03/17/2022 12:05:35 03/17/20 22 Alcohol use screening completed Emily Lau [facility] 03/17/2022 12:05:35 03/17/20 22 Cardiovascular disease risk reduction counseling completed Emily Lau [facility] 03/17/2022 12:05:36 12/17/19 21 Medicare Wellness Visit completed Miri Chung [facility] 12/16/2020 09:52:35 12/17/19 21 prevention-cardiov ascular risk reduction counseling completed Miri Chung [facility] 12/16/2020 09:52:35 12/17/19 21 prevention-annual alcohol misuse screening completed Miri Chung [facility] 12/16/2020 09:52:35 12/17/19 21 Medicare Risk for Falls Screen completed Miri Chung [facility] 12/16/2020 09:54:00 12/17/19 21 Advanced Care Planning completed Miri Chung [facility] 12/16/2020 09:53:02 12/05/19 20 Medicare Wellness Visit completed Emily Lau [facility] 12/05/2019 08:26:55 12/05/19 20 prevention-cardiov ascular risk reduction counseling completed Emily Lau [facility] 12/05/2019 08:26:55 12/05/19 20 prevention-annual alcohol misuse screening completed Emily Lau [facility] 12/05/2019 08:26:55 07/04/20 19 Medicare Risk for Falls Screen completed Emily Lau [facility] 07/04/2019 14:15:44 11/15/19 19 Medicare Wellness Visit completed Emily Lau [facility] 11/14/2018 13:55:32 11/15/19 19 Medicare Risk for Falls Screen completed Emily Lau [facility] 11/14/2018 13:57:23 11/09/19 18 Medicare Wellness Visit completed Emily Lau [facility] 11/08/2017 15:03:41 11/09/19 18 Medicare Risk for Falls Screen completed Emily Lau CMA [facility] 11/08/2017 15:06:14 11/03/19 17 04373: Therapeutic Exercise completed Mary Freeman Ms, PT [address] [place], [address], [facility] 11/02/2016 10:22:06 11/03/19 17 Treatment and Advice completed Mary Freeman Ms, PT [address] [place], [address], [facility] 11/02/2016 10:26:20 10/14/19 17 19482: Therapeutic Exercise completed Mary Freeman Ms, PT [address] [place], [address], [facility] 10/13/2016 11:10:09 10/14/19 17 Treatment and Advice completed Mary Freeman Ms, PT [address] [place], [address], [facility] 10/13/2016 08:33:25 10/01/19 17 08860: Therapeutic Exercise completed Mary Freeman Ms, PT [address] [place], [address], [facility] 09/30/2016 12:30:40 10/01/19 17 Treatment and Advice completed Mary Freeman Ms, PT [address] [place], [address], [facility] 09/30/2016 12:34:32 09/25/19 17 Physical Activity Counselling completed Mary Freeman Ms, PT [address] [place], [address], [facility] 09/24/2016 13:35:36 09/25/19 17 93781: PT Eval Low Complexity completed Mary Freeman Ms, PT [address] [place], [address], [facility] 09/24/2016 13:35:39 09/25/19 17 Treatment and Advice completed Mary Freeman Ms, PT [address] [place], [address], [facility] 09/24/2016 18:01:06 09/15/19 17 Medicare Wellness Visit completed Alicia Knight RN, BSN [facility] 09/14/2016 13:44:35 07/29/19 16 Medicare Wellness Visit completed Zunilda Cheung [facility] 07/29/2015 11:16:06 09/29/19 15 Medicare Wellness Visit completed Meera Mckeon LPN [facility] 09/28/2014 09:48:40 Imaging Results None recorded. Procedure Notes None recorded. Medical Equipment None Reported. Allergies Allergen ID Allergen Name Allergen Category Reaction Reaction Severity Criticality Documentation Date Start Date Code Code System Note Provider Name and Address Organization Details Recorded Time 924966 Product containin g penicilli n (product) medicatio n hives Not available Not available 09/05/2014 98717 8001 SNOMED VIBHA Luz [facility] 5 13:40:22 Medications Name Sig Start Date Stop Date Status Note LastModified by Organization Details LastModified Time atorvasta tin 40 mg tablet TAKE 1 TABLET EVERY DAY AT BEDTIME 2024 active Not Available Not Available Not Avai lable anastrozo le 1 mg tablet Take 1 tablet every day by oral route. 05/19 completed Not Available Not Available Not Available acetamino phen 325 mg tablet Take 3 tablets every 6 hours by oral route as needed. active per [facility] discharg e 08/12/22. Verified with patient 08/13/22. Taking PRN. Not Available Not Available Not Available lactulose 10 gram/15 mL oral syrup Take 30 mL 3 times a day by oral route as needed. 04/12 completed per [facility] discharg e 08/12/22. Verified with patient 08/13/22. Not Available Not Available Not Available Claritin 10 mg tablet Take 1 tablet every day by oral route. active per [facility] discharg e 08/12/22. Verified with patient 08/13/22. Patient reports using PRN. Not Available Not Available Not Available lisinopri l 20 mg tablet TAKE 1 TABLET DAILY 12/04 completed bp low, moving to 10 mg Not Available Not Available Not Available isosorbid e mononitra te ER 30 mg tablet,ex tended release 24 hr Take 1 tablet every day by oral route. 07/04 completed not taking Not Available Not Available Not Available terbinafi ne HCl 250 mg tablet Take 1 tablet every day by oral route. 11/08 completed Not Available Not Available Not Available propranol ol 10 mg tablet Take 1 tablet twice a day by oral route. 2014 active 20 mg twice a day Not Available Not Available Not Available propranol ol 40 mg tablet TAKE 1 TABLET TWICE DAILY 10/02 completed ON HOLD per [facility] discharg e 08/12/22. Verified with patient 08/13/22. Not Available Not Available Not Available clindamyc in 1 % topical gel APPLY A THIN LAYER TO THE AFFECTED AREA(S) BY TOPICAL ROUTE 2 TIMES PER DAY 08/13 completed as needed Not Available Not Available Not Available bisacodyl 10 mg rectal supposito ry Insert 1 supposit ory every day by rectal route as needed. active per [facility] discharg e 08/12/22. Verified with patient 08/13/22.P RN 10/20/24 rj Not Available Not Available Not Available lisinopri l 10 mg tablet Take 1 tablet every day by oral route. 06/17 completed wt loss, bp low, going to 5 mg. Not Available Not Available Not Available omeprazol e 20 mg capsule,d elayed release Take 1 capsule every day by oral route. 12/16 completed PRN ONLY Not Available Not Available Not Available lisinopri l 5 mg tablet Take 1 tablet every day by oral route, for Hyperten la. 2023 active Not Available Not Available Not Avai lable ipratropi um bromide 42 mcg (0.06 %) nasal spray USE 2 SPRAYS NASALLY EVERY DAY 2024 active Not Available Not Available Not Avai lable propranol ol 20 mg tablet Take 1 tablet twice a day by oral route. 11/27 completed Not Available Not Available Not Available carbidopa 25 mg-levodo pa 100 mg tablet Take 0.5 tablets 3 times a day by oral route. active Not Available Not Available No t Available fluticaso ne propionat e 50 mcg/actua tion nasal spray,[employer] USE 1 SPRAY NASALLY DAILY 08/13 completed not taking Not Available Not Available Not Available lisinopri l 2.5 mg tablet TAKE 1 TABLET EVERY DAY 04/21 completed per cardiolo gist patient is doing 5mg Not Available Not Available Not Available ipratropi um bromide 21 mcg (0.03 %) nasal spray 2 sprays each nostirl twice a day 08/13 completed now using 42 mcg Not Available Not Available Not Available senna-doc usate sodium capsule 8.6 mg - 50 mg capsule: Take 2 capsules by mouth daily as needed. 04/12 completed per [facility] discharg e 08/12/22. Verified with patient 08/13/22. Not Available Not Available Not Available Asprin Ec Low Dose 81 mg tablet,de layed release Take 1 tablet every day by oral route. active per [facility] discharg e 08/12/22. Verified with patient 08/13/22. Lifelong for aortric valve- tissue. Not Available Not Available Not Available Vitamin D3 25 mcg (1,000 unit) tablet Take 1 tablet by oral route. 08/13 completed taking capsules Not Available Not Available Not Available metoprolo l tartrate 25 mg tablet Take 12.5 mg (0.5 tablet) by mouth 2 times a day. 10/14 completed per [facility] discharg e 08/12/22. Verified with patient 08/13/22. Not Available Not Available Not Available IBU active PRN 10/20/24 rj Not Available Not Available Not Available calcium citrate 900 mg QD 07/04 completed end of course. Not Available Not Available Not Available Vitamin D3 1000 IU oral capsule: Take 1 capsule by mouth daily. active per [facility] discharg e 08/12/22. Verified with patient 08/13/22. Not Available Not Available Not Available Metamucil active per [facility] discharg e 08/12/22. Patient reported 08/13/22. Patient reports taking 5 capsules daily.LA N 10/20/24 rj Not Available Not Available Not Available Jublia 10 % topical solution with applicato r APPLY TO AFFECTED TOENAIL( S) BY TOPICAL ROUTE ONCE DAILY for 48 weeks 05/19 completed Not Available Not Available Not Available Vashe Topicall y every 12 hours. 10/02 completed per [facility] discharg e 08/12/22. Verified with patient 08/13/22. Not Available Not Available Not Available Vitals Date Recorded Body height Body mass index (BMI) Body weight Heart rate Oxygen saturation Oxygen saturation in Arterial blood by Pulse oximetry Systolic And Diastolic Provider Name and Address Organization Details Last Updated DateTime 4 164.47 cm 27.2 kg/m2 80793.9 6 g 66 /min 99 % 99 % 112/72 mm[Hg] Emily Lau [facility] 14:26:21 Date Recorded Body height Body mass index (BMI) Body weight Heart rate Oxygen saturation Oxygen saturation in Arterial blood by Pulse oximetry Systolic And Diastolic Provider Name and Address Organization Details Last Updated DateTime 164.47 cm 28.5 kg/m2 37241.7 g 74 /min 99 % 99 % 126/72 mm[Hg] Emily Lau [facility] 11:41:25 Date Recorded Body height Body mass index (BMI) Body weight Heart rate Systolic And Diastolic Provider Name and Address Organization Details Last Updated DateTime 10/20/2024 164.47 cm 29 kg/m2 33768.18 g 64 /min 128/76 mm[Hg] Joseph Ko [facility] 10/20/2024 09:51:19 Date Recorded Body height Provider Name an d Address Organization Details Last Updated DateTime 01/02/2025 164.47 cm Sindhu Maynard [facility] 01/02/2025 14:42:17 Date Recorded Body height Body mass index (BMI) Body weight Heart rate Systolic And Diastolic Provider Name and Address Organization Details Last Updated DateTime 04/21/2024 164.47 cm 28.5 kg/m2 77089.7 g 74 /min 126/68 mm[Hg] Emily Lau [facility] 04/21/2024 10:56:05 Date Recorded Systolic And Diastolic Provider Name and Address Organization Details Last Updated DateTime 04/26/2024 124/76 mm[Hg] Evelyn Neville LPN [facility] 04/26/2024 10:15:22 Social History Question Answer Notes LastModified by Organizat ion Details LastModified Time Tobacco Smoking Status [facility] 13:40:21 Do You Wear A Helmet When Biking? Yes Information not available 02/05/2015 What Is Your Level Of Caffeine Consumption? Occasional Information not available 02/05/2015 How Much Tobacco Do You Chew? None [email or web address] Information not available 02/05/2015 What Type Of Diet Are You Following? REGULAR [email or web address] Information not available 02/05/2015 Which Illicit Or Recreational Drugs Have You Used? None [email or web address] Information not available 02/05/2015 Education 4 Year College [email or web address] Informatio n not available 02/05/2015 How Many Days In The Past Year Have You Had A Heavy Drinking Consumption (4+ Female, 5+ Male)? 0 [email or web address] Information not available 02/05/2015 Are There Any Guns Present In Your Home? Yes [email or web address] Information not available 02/05/2015 Live Alone Or With Others? With Others [email or web address] Information not available 02/05/2015 Patient Has Health Care Proxy Signed And In Chart Yes [email or web address] Information not available 12/21/2018 MOLST Form Signed And In Chart 07/29/2015 [email or web address] Information not available 03/23/2018 CCM Consent Discussion 11/27/2016 [email or web address] Information not available 11/27/2016 Marital Status Kaz Informatio n not available 07/29/2015 Mosquito Repellent Used Routinely No [email or web address] Information not available 02/05/2015 What Was The Date Of Your Most Recent Tobacco Screening? 10/20/2024 Information not available 10/20/2024 How Many Children Do You Have? 3 [facility]acelis [facility] [place]. ), Josselyn ([facility] on), Med(anne cantrell[place] [place] [facility] [place] [facility] Information not available 03/17/2022 What Is Your Relationship Status? Kaz Information not available 03/17/2022 Seat Belts Used Routinely Yes [email or web address] Information not available 02/05/2015 Smoke Alarm In Home Yes [email or web address] Information not available 02/05/2015 General Stress Level Low [email or web address] Information not available 02/05/2015 Do You Use Sunscreen Routinely? Yes [email or web address] Information not available 02/05/2015 Sex: Female Functional Status Question Answer Note LastModified by Organizat ion Details LastModified Time Do you or have you ever used any other forms of tobacco or nicotine? No Information not available 04/12/2023 What is your level of alcohol consumption? Occasional [email or web address] Information not available 09/05/2014 Do you or have you ever used smokeless tobacco? Never used smokeless tobacco Information not available 12/16/2020 What is your occupation? Other [email or web address] Information not available 01/02/2025 Do you or have you ever used e-cigarettes or vape? Never used electronic cigarettes Information not available 12/16/2020 Mental Status None recorded. Family History Relationship Description Onset Age of this Age Resolved Age Notes LastModified by Organization Details LastModified Time Mother Myelodysplas tic syndrome (clinical) 81 [facility] Not available 07/29 13:11:13 Mother Polymyalgia rheumatica [facility] Not available 07/29 13:11:13 Mother Disorder of thyroid gland nos [facility] Not available 2015 13:11:13 Father Diverticulit is [facility] Not available 2015 13:11:14 Father Spinal stenosis [facility] Not available 2015 13:11:14 Father Hyperlipidem ia [facility] Not available 2015 13:11:14 Father Essential hypertension [facility] Not available 13:11:14 Sister Multiple sclerosis since her late 30's. At this point does not talk. Can use ASL, can use email. [facility] Not available 11/14/2018 14:13:28 Notes:sister MS, thyroid mco usin w/ breast cancer age 50s mgf mi 50s pgf cva 70s no colon cancer Medical History Condition Response CARDIOVASCULAR Y Breast Cancer Y Gynecological History Statement/Question Response Menses Monthly N Hysterectomy N History of Abnormal Pap N Age at Menarche 11 Obstetrics History GPAL:G 0 P 0 0 0 0 Immunizations Vaccine Type Date Status Note Provider Nam e and Address Organization Details Recorded Time Pneumococcal conjugate PCV 13 5 completed Not Available [facility] 07/22/2019 02:17:44 pneumococcal polysaccharide PPV23 7 completed Not Available [facility] 07/22/2019 02:21:33 Tdap 5 completed Haylee Ambrose M.D. [address] [place] [address], [phone], [facility] 09/10/2014 19:20:04 Td(adult) unspecified formulation 7 completed Magdalena Helm [facility] 09/17/2014 12:13:15 IPV 1 completed Magdalena Helm [facility] 09/17/2014 12:13:15 Hep A, unspecified formulation 1 completed Magdalena Helm [facility] 09/17/2014 12:13:15 pneumococcal polysaccharide PPV23 7 completed Magdalena Helm [facility] 09/17/2014 12:13:15 influenza, unspecified formulation 1 completed Magdalena Helm [facility] 09/17/2014 12:13:15 typhoid, unspecified formulation 1 completed Magdalena Helm [facility] 09/17/2014 12:13:15 Hep B, unspecified formulation 1 completed Magdalena Helm [facility] 09/17/2014 12:13:15 influenza, unspecified formulation 0 completed Magdalena Helm [facility] 09/17/2014 12:13:15 Hep A, unspecified formulation 1 completed Magdalena Helm [facility] 09/17/2014 12:13:15 Hep B, unspecified formulation 1 completed Magdalena Helm [facility] 09/17/2014 12:13:15 Hep B, unspecified formulation 1 completed Magdalena Helm [facility] 09/17/2014 12:13:15 influenza, unspecified formulation 9 completed Magdalena Helm [facility] 09/17/2014 12:13:15 zoster live 9 completed Magdalena Helm [facility] 09/17/2014 12:13:15 influenza, unspecified formulation 5 completed Angela [facility] 07/15/2015 14:53:11 influenza, unspecified formulation 6 completed Not Available [facility] 08/05/2019 02:10:41 influenza, unspecified formulation 7 completed [facility] 04/[facility]/2017 08:07:20 influenza, unspecified formulation 8 completed [facility] 04/04/2018 08:21:41 Influenza, split virus, quadrivalent, preservative 0 completed [facility] 04/04/2020 08:26:38 Influenza, high-dose, quadrivalent, PF 2 completed Ava Elise MD [address] [place] [address], [phone], [facility] 03/17/2022 22:18:08 COVID-19, mRNA, LNP-S, PF, 30 mcg/0.3 mL dose 1 completed [facility] 09/12/2020 15:18:27 COVID-19, mRNA, LNP-S, PF, 30 mcg/0.3 mL dose 1 completed [facility] 09/12/2020 15:18:32 COVID-19, mRNA, LNP-S, PF, 30 mcg/0.3 mL dose 1 completed [facility] 05/01/2021 09:37:48 Influenza, split virus, quadrivalent, preservative 1 completed [facility] 06/16/2021 14:30:16 COVID-19, mRNA, LNP-S, bivalent, PF, 50 mcg/0.5 mL or 25mcg/0.25 mL dose 4 completed [facility] 08/13/2023 13:47:00 zoster recombinant 4 completed [facility] 08/13/2023 13:47:17 zoster recombinant 4 completed Ava Elise MD [address] [place] [address], [phone], [facility] 01/27/2024 13:54:08 Past Encounters Encounter ID Performer Location Encounter Start Date Encounter Closed Date Diagnosis/Indication Diagnosis SNOMED-CT Code Diagnosis ICD10 Code Diagnosis Note [id number] SHANICE Riojas M.D., OFFICE [address] [place] [address] 09/05/2014 13:20:59 09/05/2014 14:47:25 Active or passive immunization [id number] Screening mammography [id number] Malignant tumor of breast 086326005 10/2010 stage 2A, T2, N0, M0 ER +, LA neg, Her2/govind neg L breast cancer s/p segmental mastectomy (surgeon Dr Woodall) ; 3.2 cm grade 3 invasive ductal ca; oncotype testing score 36 = ~25% distant recurrence at 10 years (high risk group); s/p 4 cycles TC, adjuvant xrt (rad onc Dr Land mp); on anastrazol e 1mg daily; ca/vit D. Onc: (Dr Zaheer chaparro); needs new oncologist ; last visit w/ dr zaheer chaparro in [facility] jul 2014; due for her mammo 09/2014, order is in to [facility]; pt already sent her med records to this office; her preference is likely to see dr garcía Aneurysm o f thoracic aorta [id number] concerning no evid of aneurysm on TTE 11/2010, then 4.15cm on 07/2014 TTE counseled about meaning, management of this issue TLC and blood pressure control 105-120/ goal per pt can have higher bp at home; plan to titrate BB (very low dose started today); reviewed that BB can help limit progressio n of aneurysm over 4 years would argue that rechecking tte in 6mo (not 1 year) would be reasonable for this first year as we do not know how fast it is growing will see pt back in 2 weeks for bp check Administra tion of pneumococcal vaccine [id number] SHANICE Riojas M.D., OFFICE [address] [place] [address] 09/28/2014 09:46:04 09/28/2014 10:29:16 Aneurysm of thoracic aorta 040923582 no evid of aneurysm on TTE 11/2010, then 4.15cm on 07/2014 TTE TLC and blood pressure control 105-120/ goal per pt can have higher bp at home; plan to titrate BB (very low dose started today); reviewed that BB can help limit progressio n of aneurysm over 4 years would argue that rechecking tte in 6mo (not 1 year) would be reasonable for this first year as we do not know how fast it is growing; ordered, pt in agreement will see pt back in 2 weeks for bp check, goals and TLC reviewd, pt to monitor daily to qod ove rthe nxt 2 weeks Elevated blood-pressure reading without diagnosis of hypertension 556375714 TLC and cousenling , goals reviewed given inc risk of adverse event given T AA; plan for close f/up [id number] Haylee WANG, [facility], OFFICE [address] [place] [address] 10/10/2014 11:10:46 10/10/2014 14:33:09 Aneurysm of thoracic aorta 335183068 no evid of aneurysm on TTE 11/2010, then 4.15cm on 07/2014 TTE working on TLC has a component of white coat htn but no formal dx of HTN initiated on low dose BB to help limit progressio n of aneurysm over 4 years, may need to be titrated up some over time but home bp readings at goal recheck tte in January (6mo from jul) Elevated blood-pressure reading without diagnosis of hypertension 063971372 TLC and cousenling , goals reviewed given inc risk of adverse event given T AA; plan for close f/up component of white coat htn pt to periodical ly measure bp at [facility] and return if readings consistent ly above 140/90 [id number] Haylee WANG, [facility], OFFICE [address] [place] [address] 02/05/2015 10:38:03 02/05/2015 11:41:34 Diastolic dysfunction 4174331 doing well reviewed cards recs w/ her tte in 2017 unless something changes Osteopenia 508113329 rev iewed wt bearing and ca/vit D recommenda tions pt reviewed recs w/ onc who stated dexa not needed at this time pt on anastrozol e osteopenia in ~2012, ?repeat dexa 5-7 years Malignant tumor of breast [id number] 10/2010 stage 2A, T2, N0, M0 ER +, LA neg, Her2/govind neg L breast cancer s/p segmental mastectomy (surgeon Dr Woodall) ; 3.2 cm grade 3 invasive ductal ca; oncotype testing score 36 = ~25% distant recurrence at 10 years (high risk group); s/p 4 cycles TC, adjuvant xrt (rad onc Dr Shanda timmons); on anastrazol e 1mg daily; ca/vit D. Onc: (Dr Zaheer chaparro); needs new oncologist ; last visit w/ dr zaheer chaparro in [facility] jul 2014; due for her mammo 09/2014, order is in to [facility]; pt already sent her med records to this office; her preference is likely to see dr garcía 02/2015 doing well, onc f/up yearly mammo every september [id number] Ava Elise MD , [facility], OFFICE [address] [place] [address] 07/29/2015 11:06:22 07/29/2015 12:27:55 Adult health examination 353003175 Z00.00 see Risk Assessment and Lifestyle Change Counseling section above Counseling 542071738 Z71 .9 Diastolic dysfunction 35 24666 I50.30 doing well reviewed cards recs w/ her tte in 2016 unless something changes Malignant tumor of breast 545603818 C50.919 10/2010 stage 2A, T2, N0, M0 ER +, LA neg, Her2/govind neg L breast cancer s/p segmental mastectomy (surgeon Dr Woodall) ; 3.2 cm grade 3 invasive ductal ca; oncotype testing score 36 = ~25% distant recurrence at 10 years (high risk group); s/p 4 cycles TC, adjuvant xrt (rad onc Dr Shanda timmons); on anastrazol e 1mg daily; ca/vit D. Onc: (Dr Zaheer chaparro); needs new oncologist ; last visit w/ dr zaheer chaparro in [facility] jul 2014; due for her mammo 09/2014, order is in to [facility]; pt already sent her med records to this office; seeing Dr. Sabrina García 02/2015 doing well, onc f/up yearly mammo every september Allergic rhinitis 111359 04 J30.9 Aortic steven t dilatation 708816653 I77.260 [id number] Ava Elise MD , [facility], OFFICE [address] [place] [address] 09/14/2016 13:42:36 09/14/2016 14:52:23 Adult health examination 051970465 Z00.00 see Risk Assessment and Lifestyle Change Counseling section above Counseling [id number] Z71 .9 Aortic steven t dilatation 034610870 I77.810 Malignant tumor of breast 968090691 C50.919 10/2010 stage 2A, T2, N0, M0 ER +, LA neg, Her2/govind neg L breast cancer s/p segmental mastectomy (surgeon Dr Woodall) ; 3.2 cm grade 3 invasive ductal ca; oncotype testing score 36 = ~25% distant recurrence at 10 years (high risk group); s/p 4 cycles TC, adjuvant xrt (rad onc Dr Land mp); on anastrazol e 1mg daily; ca/vit D. Onc: (Dr Zaheer chaparro); needs new oncologist ; last visit w/ dr zaheer chaparro in [facility] jul 2014; due for her mammo 09/2014, order is in to [facility]; pt already sent her med records to this office; seeing Dr. Sabrina García 02/2017 doing well, onc f/up yearly mammo every september Female str ess incontinence 08968852 N39.3 Numbness 22016011 R20.0 Eruption 067907079 R21 Active or passive immunization 595829458 Z23 Benign ess ential hypertension 5954829 I10 [id number] Mary Freeman Ms, PT Physical Therapy, [address] [address] 09/24/2016 09:23:38 09/25/2016 07:37:42 Female stress incontinence 06443948 N39.3 [id number] Mary Freeman Ms, PT Physical Therapy, [address] [address] 09/30/2016 11:21:48 09/30/2016 12:55:49 Female stress incontinence 81551589 N39.3 [id number] Mary Freeman Ms, PT Physical Therapy, [address] [address] 6 10/13/2016 07:50:15 10/13/2016 11:37:21 Female stress incontinence 58591518 N39.3 [id number] Mary Freeman Ms, PT Physical Therapy, [address] [address] 6 11/02/2016 09:58:00 11/02/2016 10:34:13 Female stress incontinence 03241838 N39.3 [id number] Ava Elise MD , [facility], OFFICE [address] [place] [address] 6 11/27/2016 11:22:12 11/27/2016 12:29:14 Benign essential hypertension 0339763 I10 Blood pressure at goal of less than 150/90 Onychomyco sis of toenails 089576658 B35.1 Urinary incontinence 165 147508 R32 [id number] Ava Elise MD , [facility] OFFICE [address] [place] [address] 6 05/19/2017 14:16:17 05/19/2017 15:24:55 Benign essential hypertension 0553713 I10 Blood pressure NOT at goal of less tahn 150/90. Onychomyco sis of toenails 193405997 B35.1 Diastolic dysfunction 35 07594 I50.30 Aortic steven t dilatation 763032152 I77.810 Dyspnea on exertion 6084 5006 R06.09 [id number] Ava Elise MD , [facility] OFFICE [address] [place] [address] 6 11/08/2017 14:51:19 11/08/2017 15:47:17 Adult health examination 747261403 Z00.00 see Risk Assessment and Lifestyle Change Counseling section above Counseling 757057976 Z71 .9 Depression screening 171 140953 Z13.89 depression screening tool administer ed, entered into emr, scored Benign ess ential hypertension 1842222 I10 Blood pressure at goal of less than 140/90. Diastolic dysfunction 35 86935 I50.30 Aortic steven t dilatation 593772001 I77.810 Pain in right arm 556601 004 M79.933 [id number] MD KATHLEEN Najera, [facility] OFFICE [address] [place] [address] 05/06/2018 13:22:53 05/06/2018 14:12:16 Benign essential hypertension 3309345 I10 Blood pressure at goal of less tahn 150/90 Essential hypertension 14871944 I10 Diastolic dysfunction 35 54523 I50.30 Aortic steven t dilatation 182257728 I77.810 Onychomyco sis of toenails 586411827 B35.1 Vitamin D deficiency 347 72695 E55.9 [id number] MD KATHLEEN Najera, [facility] OFFICE [address] [place] [address] 6 11/14/2018 13:52:48 11/14/2018 15:37:21 Adult health examination 739438081 Z00.00 see Risk Assessment and Lifestyle Change Counseling section above Counseling 150307849 Z71 .9 Depression screening 171 524092 Z13.89 depression screening tool administer ed, entered into emr, scored and discussed Essential hypertension 74626382 I10 Pain in left arm 9666082 00 M79.756 [id number] Ava Elise MD , [facility] OFF[facility] [address] [place] [address] 6 07/04/2019 14:06:42 07/04/2019 15:46:51 Essential hypertension 81896649 I10 at goal of less than or equal to 130/80/ F/U 6 mo for wellness w/ labs first Aortic steven t dilatation 341369906 I77.810 stable- foolwoed by cardiol. Strain of hamstring muscle 8174400825 04 S76.311A actually gluteal strain- discussed exercises. [id number] MD KATHLEEN Najera, [facility] OFFICE [address] [place] [address] 6 12/05/2019 13:36:23 12/05/2019 15:46:45 Adult health examination 640085054 Z00.00 see Risk Assessment and Lifestyle Change Counseling section above Counseling 008387326 Z71 .9 including cardiovasc ular risk reduction counseling - continue healhty diet, exercise, Aspirinin not needed. Depression screening 171 Z13.89 depression screening tool administer ed, entered into emr, scored and discussed, Screening for alcohol abuse 786306467 Z13.39 Essential hypertension 58116752 I10 at goal of less than or equal to 130/80/ F/U 6 mo bp too low. , use 1/2 pill Vasomotor rhinitis 30282 03 J30.0 try the nasal spray Vitamin D deficiency 347 54134 E55.9 add on level. Aortic steven t dilatation 160503718 I77.810 stable- foolwoed by cardiol. [id number] Ava Elise MD , [facility] OFF[facility] [address] [place] [address] 06/17/2020 10:53:31 06/17/2020 11:40:53 Diastolic dysfunction 5699342 I50.30 stable, had echo- no chnage on study 02/2020 Essential hypertension 98985079 I10 at goal of less than or equal to 130/80. Go to 5 mg lisinopril for a few weeks. and if BP remeains undr 124/70, would stop it, would like BP to be under 130/80. Screening for disorder 134068165 Z11.59 Vertigo 589498959 R42 Discussed MRA to see if posterior circulatio n is ok. She wants to hold and observe. Dyspnea 623853387 R06.00 Brief episodes of shortness of breath lasting 20-30 seconds. I considered doing a 30 day event monitor and she will hold on that, she prefers to just monitor for now and if they escalate we will order this at the cardiology office. [id number] Ava Elise MD , [facility] OFF[facility] [address] [place] [address] 12/16/2020 14:40:04 12/16/2020 15:56:22 Adult health examination 490529655 Z00.00 see Risk Assessment and Lifestyle Change Counseling section above Counseling 385636859 Z71 .9 including cardivascu lar risk reduction counseling Depression screening 171 Z13.31 depression screening tool administer ed, entered into emr, scored and discussed, time greater than 7.5 minutes Screening for alcohol abuse 904426198 Z13.39 Advance di rective discussed with patient 237435633 Z71.89 Chronic hoarseness 66555 72169 105 R49.0 Essential hypertension 60962838 I10 Was at goal of less than or equal to 130/80. Go to 5 mg lisinopril for a few weeks. and if BP remeains undr 124/70, would stop it,. so stopped it now 136/70. Will wait tto restart lisinopril . [id number] Ava Elise MD , [facility] OFFICE [address] [place] [address] 6 06/16/2021 14:19:58 06/20/2021 15:34:38 Aortic root dilatation 546313069 I77.810 contininue to follwo Essential hypertension 84318204 I10 bp not at goal of less than 130/80. REstart low dose lisinopril . Hold on this until a stable dose . Vasomotor rhinitis 48954 03 J30.0 try the nasal spray Severe aor tic valve stenosis 441296303 I35.0 May get TAVR at some point. Cold hands 382920940 R20 .8 ? part of the . call if less energy or lightheade d. [id number] Ava Elise MD , [facility] OFFICE [address] [place] [address] 6 07/18/2021 10:24:55 07/18/2021 11:01:19 Essential hypertension 52499088 I10 bp at goal of less than 130/80. Continue low dose lisinopril . . [id number] Ava Elise MD , [facility] OFF[facility] [address] [place] [address] 6 03/17/2022 13:38:19 03/17/2022 14:38:58 Adult health examination 239160706 Z00.00 see Risk Assessment and Lifestyle Change Counseling section above Counseling 518020027 Z71 .9 including cardiovasc ular risk reduction counseling Depression screening 171 985858 Z13.31 depression screening tool administer ed, entered into emr, scored and discussed Screening for alcohol abuse 222991617 Z13.39 Essential hypertension 71904773 I10 bp not at goal of less than 130/80. But 138/70 is acceptable . Continue low dose lisinopril . and propranolo l Active or passive immunization 235251131 Z23 Aortic valve stenosis 60 506078 I35.0 to have TAVR. Aortic steven t dilatation 420114475 I77.810 stable contininue to follow [id number] Ava Elise MD , [facility] [address] [place] [address] 08/19/2022 15:42:47 08/20/2022 08:46:53 Constipation 00029949 K59.00 continue high fiber diet. and loose stool. Rec: probiotic pill. metamucil, if more conastip- use the magnesium Abdominal pain 16551122 R10.9 Some abdominal tenderness rajesh lower. REc: check x-ray abd. see if stool has fully passed. Muscle pain 67969241 M79 .10 can use diclofenac gel. Simple lac eration of tongue 828131304 S01.512A 1 cm tongue laceration discussed. [id number] Ava Elise MD , [facility] OFF[facility] [address] [place] [address] 10/02/2022 07:51:54 10/02/2022 08:29:32 Essential hypertension 24370721 I10 BP at goal of less than 130/80 Active or passive immunization 676836061 Z23 shingles - reminded Diarrhea 36657954 R19.7 frequent stools- eating lots fiber and using metaamucil . Aortic steven t dilatation 577449173 I77.810 stable contininue to follow History of malignant neoplasm of breast 905595094 Z85.3 annual mammogram and breast cancer visit. History of aortic valve replacement 1169136910 100 Z95.4 conitnue aspirin low dose. [id number] Ava Elise MD , [facility] OFF[facility] [address] [place] [address] 04/12/2023 11:08:34 04/12/2023 12:15:23 Adult health examination 781280701 Z00.00 see Risk Assessment and Lifestyle Change Counseling section above Depression screening 171 873644 Z13.31 depression screening tool administer ed Screening for alcohol abuse 517090104 Z13.39 Alcohol use screening tool administer ed Active or passive immunization 765673406 Z23 shingles - reminded; Pt states had flu shot via [employer] 04/12/23 as Diastolic dysfunction 35 18089 I50.30 discussed last echo lookd better. Has cardiol f/u 2023 Essential hypertension 13025340 I10 BP not at goal of less than 130/80. discussed taking at home and if still high come in. home cuff is correlated . I am thinking about the lisinorpil . if high we will start that Verruca vulgaris 3584515 3 B07.9 upper R arm. will use LN. Fourth sound gallop 4592 006 R01.2 [place] discussed. [id number] Ava Elise MD , [facility] [address] [place] [address] 07/13/2023 14:07:45 07/13/2023 15:11:03 Pure hypercholesterolemia 455364198 E78.00 continue Vasomotor rhinitis 90699 03 J30.0 conitnue the nasal spray Essential hypertension 67060798 I10 BP at goal of less than 130/80. conitnue metoropolo l and lisinopril Left side sciatica 82092 97878 32819 M54.32 discussed will follwo seems a bit better. Pain of le ft hip joint 7996125255 89692 M25.552 check x-ray Bradykinesia 997525729 R 25.8 rec: neuro Aortic valve stenosis 60 155985 I35.0 to have TAVR. [id number] Ava Elise MD , [facility] [address] [place] [address] 10/15/2023 11:26:35 10/15/2023 12:11:28 Essential hypertension 75658669 I10 BP at goal of less than 130/80. conitnue lisinopril at 5 mg. Increased muscle tone 56 273367 M62.89 Muscle pain 48286441 M79 .10 ? from statin. stop x 3 wks see hwo going, if still w/ muscle pain then would refer to PT. Coronary atherosclerosis 473591162 I25.10 discussed? need for statin as has been asymptomat ic Diastolic dysfunction 35 82332 I50.30 discussed last echo lookd better. Has cardiol f/u 2023 Aortic valve stenosis 60 609159 I35.0 to have TAVR. [id number] Ava Elise MD , [facility]ICE [address] [place] [address] 6 04/21/2024 10:44:25 04/21/2024 11:40:08 Adult health examination 008063520 Z00.00 see Risk Assessment and Lifestyle Change Counseling section above Depression screening 171 932733 Z13.31 depression screening tool administer ed Screening for alcohol abuse 330150289 Z13.39 Alcohol use screening tool administer ed Advance di rective discussed with patient 318448552 Z71.89 Advanced Care Planning [facility] reveiwed no changes Active or passive immunization 118955211 Z23 Flu and Covid vaccine done at the [facility] History of aortic valve replacement 0777745697 100 Z95.4 conitnue aspirin low dose. Parkinson's disease 4904 9000 G20.A1 Dx in 03/2024 less tremor. continue on carbidopa- levodopa Essential hypertension 58446584 I10 BP at goal of less than 130/80. conitnue lisinopril at 5 mg. Right side sciatica 3202 245082 07179 M54.31 ok to use 1 advil and 2 advil at night. [id number] Ava Elise MD , [facility] [address] [place] [address] 10/20/2024 09:37:29 10/20/2024 10:30:10 Immunization due 891240132 Z23 Td: will get at pharmacy 10/20/24 rj Ingrowing great toenail 283072849 L60.0 Recurent, currently not infected. rec: partial nail ablation w/ ? phenol Diastolic dysfunction 35 64762 I50.30 discussed last echo lookd better. Has cardiol f/u 2023 Essential hypertension 23112854 I10 BP at goal of less than 130/80. conitnue lisinopril at 5 mg. History of aortic valve replacement 6053644909 100 Z95.4 conitnue aspirin low dose. [id number] Chary Mendez MD Podiatry, [facility] [address] [place] [address] 01/02/2025 14:16:53 01/02/2025 15:37:28 Ingrowing nail 677980730 L60.0 Health Concerns Section Related Observation LastModified by Organization Detai ls LastModified Time None Recorded Concern Status LastModified by Organization Details LastModified Time None Recorded Advance Directives Directive None Recorded Payers Insurance Date Sequence Insurance Name Policy Number Policy Young Covered Member ID Young Member ID Guarantor Name 01/02/2025 1 [employer] (MEDICARE REPLACEMENT/A DVANTAGE - PPO) [id number] Maria Alejandra Syed Michael [id number] Maria Alejandra Rodriguez 06/17/2020 1 [place] [employer] Maria Alejandra Syed Michael [id number] Maria Alejandra Rodriguez 07/16/2020 1 [place] [employer] - MEDIGAP BLUE (MEDICARE SUPPLEMENT) [id number] Jt Michael [id number] Maria Alejandra Rodriguez 07/16/2020 1 [place] [employer] Maria Alejandra Syed Michael [id number] Maria Alejandra Rodriguez Notes Date Note Type Note Provider Name and Address Organization Details Recorded Time 4 text/html [facility] HypertensionReported bypatient.Notes:Gets SOB 77 yo female for medical management for HTN and hyperlipidemia HTN- on metoprolol and lisinopril. Asking about grpaefuit juice- ok no w and then if on atorvastatin. Did have aortic valve surgery 07/2022. Had open heart. for bicuspid valve In the past year since 06/2022- had L hip and leg issue . Got the valve surgery, cardiac rehab. Got exercises for sciatica. Then exercise classes at [place]. High powered exercises were difficult. so did the easier class. But noticed that she moved slower than others. Muscle aches afterwards as well. sometimes prickly feelingin the back and L hip pain of differnt intensity. Stretching exercises help. Sometimes wakes her up at night. tylenol and sometimes iburpofen helps. Seems better in the last week. Llso, getting out of car and getting started harder. Seems better though. seems related to the sciatica she had. Back pain better. , occ foot dropnot sure which side. trips. Feels off balance often. Mental processing slower. occ R hand tremor. (1x/mo). loss of smell, ? reduced facial expression, occ. trouble swallowing -every 2-3 months. less balance, soft speech. - saw ENT. Lesion growing on L arm. Taking vit D 1000/d.Diet- fruits and vegetables. Had BMD- nl( had been on Arimidex for Breast Cancer, stopped it in April 2018 ). Has allergies. Takes Claritin. and fluticasone has it. Using generic nasacort. exercise 5 d walk, 30 min treadmill - on hold, but going to get back into it. some trouble hearing. not ready for hearing aids. some rinnorhea. memory fair. Ava Elise MD [address] [place] [address], [phone], [facility] 07/13/2023 15:09:51 4 text/html [facility] HypertensionReported bypatient.Notes:Gets SOB 78 yo female for medical management for HTN and hyperlipidemia HTN- on metoprolol and lisinopril. Saw Dr. Barker this week. BP was hig and felt the need to nap. They discussed and stopped metoprolol and doubled the lisinopril. Did have aortic valve surgery 07/2022. Had open heart. for bicuspid valve Has the heart murmur after- cardiol told her that was fine. Seeing neuro in March 2024 for tremor, micrographia and hoarseness. Muscle issues. tight muscles. wakes up with muscle aching. Llso, getting out of car and getting started harder. Seems better though. seems related to the sciatica she had. Back pain better. , occ foot dropnot sure which side. trips. Feels off balance often. Mental processing slower. occ R hand tremor. (1x/mo). loss of smell, ? reduced facial expression, occ. trouble swallowing -every 2-3 months. less balance, soft speech. - saw ENT. Lesion growing on L arm. Taking vit D 1000/d.Diet- fruits and vegetables. Had BMD- nl( had been on Arimidex for Breast Cancer, stopped it in April 2018 ). Has allergies. Takes Claritin. and fluticasone has it. Using generic nasacort. exercise 5 d walk, 30 min treadmill - on hold, but going to get back into it. some trouble hearing. not ready for hearing aids. some rinnorhea. memory fair. Ava Elise MD [address] [place] [address], [phone], [facility] 10/15/2023 12:08:41 4 text/html Physical Exam/FemaleReported bypatient.Notes:Here for physical. Doing well.Risk Assessment and Lifestyle Change Counseling (Medicare)Reported bypatient.Coronary Artery Disease Risk Assessment:No Family history of coronary artery disease; No personal history of diabetes; No history of peripheral vascular disease, AAA, or carotid disease; No personal history of coronary artery disease; [place] 10 year risk Breast Cancer Risk Assessment:No family history of breast cancer; No history of breast cancer or dcis Colon Cancer Risk Assessment:No family history of pre cancerous colon polyps or cancer Lung Cancer Risk Assessment:Never smoked; No asbestos exposure Fracture Risk Assessment:No unexplained fracture; No use of corticosteroids; No anti-seizure medication; Normal bone density; Has adequate calcium intake; Taking Vitamin D supplement; No chronic use of proton pump inhibitors Cognitive/Behavioral Risk Assessment:No personal history of mental illness; No family history of mental illness Safety Risk Assessment:Has grab bars in bathroom; Has rails on steps (no stairs); No falls; No evidence of abuse/neglect Functional Status:Patient has trouble hearing the television or radio when others do not.;Patient has to strain or struggle to hear/understand conversations.; Patient does not need help with preparing meals, transportation, shopping, taking medicine, managing finances, or other activities of daily living.; Patient does not have visual loss that interferes with daily activities; Does not live alone; Patient was not unsteady and did not take longer than 30 seconds during the timed get up and go test.[facility] HypertensionReported bypatient.Notes:Gets SOB 78 yo female for wellness did have aortic valve surgery 07/2022. Had open heart. for bicuspid valve Parkinsons- Dr. Jara on carbidopa, levodopa 50 , not sure if helps or not. trmor better. Taking vit D 1000/d. BP off metoprolol. due to fatigue/sleepiness. On lsiinopril 5 mg Diet- fruits and vegetables. Had BMD- nl( had been on Arimidex for Breast Cancer, stopped it in April 2018 ). Has allergies. Takes Claritin. and fluticasone has it. Using generic nasacort. exercise 4-5d walk, 30 min treadmill - And doing PT for parkinsons. some trouble hearing. not ready for hearing aids. memory fair. Ava Elise MD [address] [place] [address], [phone], [facility] 04/21/2024 11:37:23 5 text/html Physical Exam/FemaleReported bypatient.Notes:Here for physical. Doing well.Risk Assessment and Lifestyle Change Counseling (Medicare)Reported bypatient.Coronary Artery Disease Risk Assessment:No Family history of coronary artery disease; No personal history of diabetes; No history of peripheral vascular disease, AAA, or carotid disease; No personal history of coronary artery disease; [place] 10 year risk Breast Cancer Risk Assessment:No family history of breast cancer; No history of breast cancer or dcis Colon Cancer Risk Assessment:No family history of pre cancerous colon polyps or cancer Lung Cancer Risk Assessment:Never smoked; No asbestos exposure Fracture Risk Assessment:No unexplained fracture; No use of corticosteroids; No anti-seizure medication; Normal bone density; Has adequate calcium intake; Taking Vitamin D supplement; No chronic use of proton pump inhibitors Cognitive/Behavioral Risk Assessment:No personal history of mental illness; No family history of mental illness Safety Risk Assessment:Has grab bars in bathroom; Has rails on steps (no stairs); No falls; No evidence of abuse/neglect Functional Status:Patient has trouble hearing the television or radio when others do not.;Patient has to strain or struggle to hear/understand conversations.; Patient does not need help with preparing meals, transportation, shopping, taking medicine, managing finances, or other activities of daily living.; Patient does not have visual loss that interferes with daily activities; Does not live alone; Patient was not unsteady and did not take longer than 30 seconds during the timed get up and go test.[facility] HypertensionReported bypatient.Notes:Gets SOB C/O L big toe on and off pain, ? ingrown. Toe nail nurse recommending podiatry. 79 yo female for MM did have aortic valve surgery 07/2022. Had open heart. for bicuspid valve Parkinsons- Dr. Atrheya on carbidopa, levodopa 50 , thinks it helps Taking vit D 1000/d. BP off metoprolol. due to fatigue/sleepiness. On lsiinopril 5 mg Diet- fruits and vegetables. Had BMD- nl( had been on Arimidex for Breast Cancer, stopped it in April 2018 ). Has allergies. Takes Claritin. and fluticasone has it. Using generic nasacort. exercise 4-5d walk, 30 min treadmil, some PT exercises. some trouble hearing. not ready for hearing aids. memory fair. Ava Elise MD [address] [place] [address], [phone], [facility] 10/20/2024 10:29:18 5 text/html Patient presents to the office complaining of painful toenail of her left big toe. Patient states she has been experiencing intermittent pain for many years. Patient without complaints of swelling or drainage. Say Pickard DPM [address] [place] [address], [phone], [facility] 01/02/2025 15:26:28 OBGyn Episode No OBEpisode recorded.
--- OUTSIDE RECORDS SUMMARY | 2025-01-08 12:22 | XMS_ITS | Clinical Summary ---
Author Organization [facility]ly [facility] Facility Address [address] [address] Care Team Providers Care Advisor Consultant Name Role Phone Unavailable Primary Care Provider Unavailabl e Social History Tobacco Use Types Packs/Day Years Used Date Smoking Tobacco: Never Assessed Comments Unknown Sex and Gender Information Value Date Recorded Sex Assigned at Not on file Legal Sex Female 9:05 AM EST Gender Identity Not on file Sexual Orientation Not on file Plan of Treatment Health Maintenance Due Date Last Done Comments Influenza Vaccine (Season Ended) 2025 03/20/2020, 04/01/2018, 04/16/2017, Additional history exists Hepatitis B Vaccine Aged Out 05/21/2011, 12/19/2010, 11/18/2010 No longer eligible based on patient's age to complete this topic Pneumococcal Vaccine: 50+ Years Completed 09/14/2016, 09/05/2014, 01/18/2007 Insurance [employer]
== END 2025-01-08 11:52 | disposition home or self-care (01) ==
LOC: HO.HSMS 11:27
PROVIDERS: PCP Family Medicine; Visit Provider Psychiatry & Neurology Neurology
DX: G20.A1 Parkinson's disease without dyskinesia, without mention of fluctuations (principal); M54.2 Cervicalgia; G47.52 REM sleep behavior disorder
CPT/HCPCS: 99214; G2211